=== PATIENT | female | born 1950 | race American Indian/Alaskan Native ===

== ENCOUNTER 2019-07-27 10:55 | Outpatient (CLI) | payer MEDICARE, OTHER ==
--- NOTE | 2019-07-27 12:35 | Cat Scan Report ---
CT OF THE ABDOMEN AND PELVIS WITHOUT CONTRAST INDICATION / CLINICAL INFORMATION: HEMATURIA R31.9 X 3 DAYS. TECHNIQUE: All CT scans at this location are performed using CT dose reduction for ALARA by means of automated e xposure control. COMPARISON: None available. FINDINGS: ABDOMEN: There is a poorly defined area of low density in the right mid kidney laterally which measur es approximately 34 Hounsfield units. I do not identify a renal calculus or hydronephrosis. There is cholelithiasis. The gallbladder is normal in size without wall thickening or bile duct dilatation. Th e liver, pancreas, spleen, adrenal glands and bowel are normal. No adenopathy is identified. The lung bases are clear. PELVIS: The distal ureters and urinary bladder are normal. The uterus and ovaries are not identified. There is no evidence of appendicitis or diverticulitis. No abnormal mass or fluid collection is seen . I do not identify a hernia. There is moderate degenerative disc disease at L4-5. IMPRESSION: 1. Subtle ill-defined low density lesion in the right mid kidney laterally. CT of the kidneys without and with intravenous contrast may be helpful in further characterization. Renal ultrasound may also be useful. 2. Cholelithiasis. Signer Name: Vito Salvador MD Signed: 07/27/2019 12:31 PM Workstation Name: [id number]
== END 2019-07-27 10:56 | disposition home or self-care (01) ==
LOC: CT 10:55
PROVIDERS: ATTEND Urology
DX: K80.80 Other cholelithiasis without obstruction (principal); N28.9 Disorder of kidney and ureter, unspecified
CPT/HCPCS: 74176